=== PATIENT | female | born 1930 | race Caucasian/White ===

== ENCOUNTER 2019-08-13 13:23 | Emergency (ER) | payer MEDICARE ==
[2019-08-13] MEDS ORDERED: ONDANSETRON HCL INJ/PF 4 MG/2 ML SDV IV ONE (13:30)
[2019-08-13] MEDS ORDERED: ETOMIDATE INJ/PF 20 MG/10 ML SDV IV ONE (13:37)
[2019-08-13] MEDS ORDERED: NOREPINEPHRINE BITARTRATE INJ/PF 4 MG/4 ML SDV IV ONE (13:47)
[2019-08-13] MEDS ORDERED: PROPOFOL 1,000 MG/100 ML INFUS..BTL IV PRN (13:49)
[2019-08-13] MEDS ORDERED: PROPOFOL INJ 200 MG/20 ML VIAL IV ONE (13:49)
[2019-08-13] MEDS: DEXTROSE 5%-WATER 250 ML with NOREPINEPHRINE BITARTRATE 4 MG IV PRN ×4 (13:52→14:14)
[2019-08-13] MEDS ORDERED: PIPERACILLIN/TAZOBACTAM 3.375 GM VIAL IV ONE (13:53)
[2019-08-13] MEDS ORDERED: MORPHINE SULFATE 10 MG/ML INJ IV ONE (14:10)
--- NOTE | 2019-08-13 14:31 | RADIOLOGY REPORT (SQ) ---
EXAM DESCRIPTION: CHEST SINGLE VIEW COMPLETED DATE/TIME: 08/13/2019 2:12 pm REASON FOR STUDY: tube plcaement COMPARISON: None. EXAM PARAMETERS: NUMBER OF VIEWS: One view. TECHNIQUE: Single frontal radiographic view of the chest acquired. RADIATION DOSE: NA LIMITATIONS: None. FINDINGS: LUNGS AND PLEURA: Endotracheal tube and NG tube are in place. Endotracheal tube lies 2.1 cm above the bhavik. NG tube tip is not seen but appears to lie in the left upper quadrant probably within stomach. Lung de jesus are clear. MEDIASTINUM AND HILAR STRUCTURES: Fullness in the right hilum is consistent with pulmonary artery. HEART AND VASCULAR STRUCTURES: Heart normal in size. Normal vasculature. BONES: No acute findings. HARDWARE: None in the chest. OTHER: No other significant finding. IMPRESSION: Support lines and tubes are in satisfactory position. TECHNICAL DOCUMENTATION: JOB ID: [id number] 2010 [employer]- All Rights Reserved Reading location - IP/workstation name: [email or web address]
[2019-08-13] MEDS: NORMAL SALINE 1000 ML 1,000 ML IV PRN ×2 (14:45→15:40)
--- NOTE | 2019-08-13 15:24 | ER Document Report ---
Entered by COLLEEN CARRILLO SCRIBE 08/13/19 0769 Acting as scribe for:SHANIQUA MEJIA DO ED General - General Stated Complaint: SYNCOPE Primary Care Provider: LAURA IGLESIAS DO [Primary Care Provider] - Follow up as needed Mode of Arrival: Ambulatory Information source: Patient Notes: This 88 year old female patient presents today via EMS for concerns of a syncopal event at home just prior to arrival. Niece who the patient lives with at bedside states that she heard a noise in the kitchen and found the patient down prone on the floor. EMS states that the patient went in and out of responsiveness on the way here and had what EMS described as "seizure activity". History is extremely limited. Patient only complains of nausea. Additional history has been obtained after the niece arrived. Patient reported that the patient recently moved here a few months ago from [place] and she is helping to take care of her due to her dementia and being unable to care for self. Niece states that in [place] she had a DNR/DNI posted on her refrigerator but she did not bring her that with her when she moved here. Niece states that she is confident that her wishes were to not be intubated or resuscitated. - Related Data Allergies/Adverse Reactions: No Known Allergies Allergy (Unverified 08/13/19 16:35) Past Medical History - General Information source: Emergency Med Personnel Cannot obtain history due to: Unstable vital signs - Social History Smoking Status: Never Smoker Cigarette use (# per day): No Frequency of alcohol use: None Drug Abuse: None Lives with: Family Family History: Reviewed & Not Pertinent Review of Systems - Review of Systems Constitutional: No symptoms reported EENT: No symptoms reported Cardiovascular: No symptoms reported Respiratory: No symptoms reported Gastrointestinal: See HPI, Nausea Genitourinary: No symptoms reported Female Genitourinary: No symptoms reported Musculoskeletal: No symptoms reported Skin: No symptoms reported Hematologic/Lymphatic: No symptoms reported Neurological/Psychological: No symptoms reported -: Yes All other systems reviewed and negative Physical Exam - Vital signs Vitals: Resp Pulse Ox 28 H 97 08/13/19 13:27 08/13/19 13:27 - Notes Notes: Physical Exam: General: Alert, appears frail, generally weak, and pale. . HEENT: Normocephalic. Atraumatic. Extraocular movements intact. Oropharynx clear. Dry mucous membranes. Pupils are 4mm and reactive. Neck: Supple. Non-tender. No JVD. Respiratory: No respiratory distress, on non-rebreather. Clear and equal breath sounds bilaterally. Cardiovascular: Tachycardic, regular rhythm. Abdominal: Obese. Non-tender. No distension. Normal Bowel Sounds. Back: No gross abnormalities. Extremities: Moves all four extremities. Upper extremities: Normal inspection. Normal ROM. Lower extremities: Normal inspection. No edema. Normal ROM. Neurological: Normal cognition. AAOx4. Normal speech. Psychological: Normal affect. Normal Mood. Skin: Warm. Dry. Normal color. Course - Re-evaluation Re-evalutation: 08/13/19 18:58 MDM Unfortunate, delightful 88 year old female arrives with complaints of nausea. Apparently collapsed in kitchen and niece called EMS. EMS found the pt prone and with some SOB. Consciousness was altered en route along with variable heart rate and resp rate. Peroral cyanosis was noted intermittently. IV was established IVF started and FSBS found to be >100. Generally tachycardic en ro [place] to the ED. Received one dose of zofran en route and had some tremors/ shaking afterwards. She arrives alert but looking frail and acutely ill complaining only of nausea. No pain. No chest pain and no abd pain. In a short period of time she dropped BP despite IV fluids bolus and NS blous was carried out quickly. Additionally, there was concern over her airway, so she underwent intubation in the ED by me with the glidescope. She continied to be hypotensive despite IVF and pressors. Speaking wiht the niece (once she arrived) brought to light that the pt would want to be DNR and in fact was DNR in the past. She continued to drop her BP and IVF and pressores were withdrawn. She was administered IV morphine for comfort. She was pronounced at 1422. Patoral services was consulted. The certificate was signed. - Vital Signs Vital signs: Temp Pulse Resp BP Pulse Ox 9 L 67/56 L 40 L 08/13/19 14:13 08/13/19 14:13 08/13/19 14:09 - Laboratory Result Diagrams: 08/13/19 13:00 08/13/19 13:00 - Diagnostic Test Radiology reviewed: Image reviewed, Reports reviewed - EKG Interpretation by Me EKG shows normal: Sinus rhythm - NSR sinus Arrthymia Voltage: Decreased voltage - NSR Sinus Arrthymia Nl axis low voltage anterior q waves No st elevation or depression my interpretation. Procedures - Intubation Orotracheal Time of Intubation: 13:45 Airway evaluation: Normal anatomy Mallampati Classification: Class 1 Medications: Etomidate Intubation method: Orotracheal Blade type: Jaffe Blade size: 3 Equipment used: Glidescope ETT size: 7.5 ETT secured at: Teeth ETT secured at (cm): 23 Breath Sounds after Intubation: Equal End tidal CO2 confirmed: Yes Ventilator settings: SIMV Critical Care Note - Critical Care Note Total time excluding time spent on procedures (mins): 30 Discharge - Discharge Clinical Impression: Respiratory failure Qualifiers: Chronicity: acute Respiratory failure complication: hypoxia Qualified Code(s): J96.01 - Acute respiratory failure with hypoxia Condition: Poor Disposition: Referrals: LAURA IGLESIAS DO [Primary Care Provider] - Follow up as needed I personally performed the services described in the documentation, reviewed and edited the documentation which was dictated to the scribe in my presence, and it accurately records my words and actions.
[2019-08-13 15:25] VITALS: BP 67/56
--- NOTE | 2019-08-15 10:44 | EKG REPORT ---
SEVERITY:- ABNORMAL ECG - SINUS BRADYCARDIA FIRST DEGREE AV BLOCK PROBABLE LATERAL INFARCT, OLD PROBABLE ANTEROSEPTAL INFARCT, AGE INDETERM : Confirmed by: Neelam Del Real 15-Aug-2019 10:43:29
== END 2019-08-13 16:45 | disposition expired ==
LOC: EDBD → ER 13:23
DX: J96.01 Acute respiratory failure with hypoxia (principal); R11.0 Nausea; R00.0 Tachycardia, unspecified; F03.90 Unspecified dementia, unspecified severity, without behavioral disturbance, psychotic disturbance, mood disturbance, and anxiety
CPT/HCPCS: 31500; 93005; 99291; 96361; 96374; 71045; 94660; 93010; J2270; J3490 ×2; J7060; J7030